=== PATIENT | female | born 1995 | race Two or more races ===

== ENCOUNTER 2018-03-19 12:10 | Emergency (ER) | payer OTHER ==
[2018-03-19 12:17] VITALS: BP 127/72
--- NOTE | 2018-03-19 13:42 | ER Document Report ---
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 Associated Symptoms: None Exacerbated by: Denies Relieved by: Denies - ROS ROS below otherwise negative: Yes Systems Reviewed and Negative: Yes All other systems reviewed and negative Past Medical History - General Information source: Patient - Social History Smoking Status: Unknown if Ever Smoked Lives with: Family Family History: Reviewed & Not Pertinent - Medical History Medical History: Negative Surgical Hx: Negative Vertical Provider Document - CONSTITUTIONAL Agree With Documented VS: Yes Exam Limitations: No Limitations - INFECTION CONTROL TRAVEL OUTSIDE OF THE [place] IN LAST 30 DAYS: No - HEENT Notes: PERRL, no conj injection, 1mm papule under lateral right upper eyelid , tender, ? sty - NEURO Level of Consciousness: Awake - DERM Integumentary: No Rash Course - Vital Signs Vital signs: Temp Pulse Resp BP Pulse Ox 98.5 F 89 16 127/72 H 99 03/19/18 12:15 03/19/18 12:15 03/19/18 12:15 03/19/18 12:15 03/19/18 12:15 Discharge - Discharge Clinical Impression: Stye Qualifiers: Laterality: right Eyelid: upper Qualified Code(s): H00.011 - Hordeolum externum right upper eyelid Condition: Good Disposition: HOME, SELF-CARE Instructions: Sty ([facility]), Sulfa Medications ([facility]) Additional Instructions: Warm compress Sulfa eyedrops 2 drops 4 times a day See the eye doctor on thursday for recheck Return to the emergency room any concerns Prescriptions: Sulfacetamide Sodium [Bleph-10] 2 drop OU QID #5 ml Referrals: CRISTEL HAIR MD [ACTIVE STAFF] - 03/22/18
== END 2018-03-19 14:20 | disposition home or self-care (01) ==
LOC: ER 12:10
DX: H00.011 Hordeolum externum right upper eyelid (principal)
CPT/HCPCS: 99283